=== PATIENT | male | born 1990 | race African-American/Black ===

== ENCOUNTER 2021-04-23 12:45 | Emergency (ER) | payer SELFPAY ==
[~2021-04-23] VITALS: Ht 182.9 cm; Wt 91.0 kg
[2021-04-23] MEDS ORDERED: ONDANSETRON HCL 4MG/2ML INJ IV STA (13:10)
[2021-04-23] MEDS ORDERED: MAGNESIUM/ALUMINUM HYDROXIDE/SIMETHICONE 30ML UDC PO STA (13:10)
[2021-04-23] MEDS ORDERED: KETOROLAC 30MG/ML VIAL IV STA (13:10)
[2021-04-23] MEDS ORDERED: SODIUM CHLORIDE 0.9% 1,000 ML IV ONE (13:15)
[2021-04-23 13:48] LABS: BASOPHILS % 0.5 % (0.0-2.0); HEMATOCRIT. 50.9 % (42.0-52.0); HEMOGLOBIN. 18.4 g/dL (14.0-18.0); LYMPHOCYTES % 14.7 % (20.0-50.0); MEAN CORPUSCULAR HEMOGLOBIN 31.3 pg (28.0-32.0); MEAN CORPUSCULAR VOLUME 86.8 fL (80.0-94.0); MEAN PLATELET VOLUME 8.4 fl (7.4-10.4); MONOCYTES % 7.5 % (2.0-8.0); NEUTROPHILS % 77.3 % (40.0-76.0); PLATELET 190 x1000/uL (130-400); RED BLOOD CELL COUNT 5.86 mill/uL (4.7-6.1); RED CELL DISTRIBUTION WIDTH 13.9 % (11.6-14.6)
[2021-04-23 13:55] LABS: CHLORIDE 98 mEq/L (98-107)
[2021-04-23 13:58] LABS: ETHANOL BLOOD < 10 mg/dL
[2021-04-23 14:59] LABS: CLARITY URINE CLEAR (CLEAR); COLOR URINE DARK YELLOW (YELLOW); KETONES URINE 4+ (NEGATIVE); LEUKOCYTE ESTERASE URINE 1+ (NEGATIVE); NITRITE URINE NEGATIVE (NEGATIVE); OCCULT BLOOD URINE NEGATIVE (NEGATIVE); PROTEIN URINE 1+ (NEGATIVE); SPECIFIC GRAVITY URINE 1.039 (1.005-1.030)
[2021-04-23 15:32] LABS: *AMPHETAMINES SCREEN URINE NEGATIVE (NEGATIVE); *BARBITURATES SCREEN URINE NEGATIVE (NEGATIVE); *BENZODIAZEPINES SCREEN URINE NEGATIVE (NEGATIVE); *COCAINE SCREEN URINE NEGATIVE (NEGATIVE); METHADONE URINE SCREEN NEGATIVE (NEGATIVE); OPIATES URINE SCREEN NEGATIVE (NEGATIVE)
[2021-04-23 15:33] LABS: CANNABINOID URINE SCREEN PRESUMTIVE POSITIVE (NEGATIVE); PHENCYCLIDINE URINE SCREEN NEGATIVE (NEGATIVE)
[2021-04-23] MEDS ORDERED: CIPR500T5 MT (15:58)
[2021-04-23] MEDS ORDERED: IBUP-2028 MT (15:59)
[2021-04-23 16:23] VITALS: BP 139/91
== END 2021-04-23 16:29 | disposition home or self-care (01) ==
LOC: ER 13:08
DX: N39.0 Urinary tract infection, site not specified (principal); Z90.49 Acquired absence of other specified parts of digestive tract
CPT/HCPCS: 36415; 80053; 80305; 80320; 81003; 83690; 85025; 87086; 93005; 96361; 96374; 96375; 99284; J1885; J2405; J7030; Z7610; G0480